=== PATIENT | female | born 1985 | race Asian ===

== ENCOUNTER 2016-12-11 11:35 | Observation (INO) | payer OTHER ==
[~2016-12-11 11:35] MED LIST: DEXILANT60 MG PO; ENDOCET 5-3251 EACH PO; FERROUS SULFAT325 MG PO; IBUPROFEN800 MG PO; PRENATAL TABLE1 EAC3 PO; SYNTHROID50 MCG PO; ZANTAC150 MG PO
[2016-12-11] MEDS ORDERED: ZOFRAN ODT4 MG PO (11:59)
[2016-12-11 12:12] VITALS: BP 123/61
[2016-12-11 12:59] LABS: MCH 25.2 PG (29.0-34.0); MCHC 30.5 G/DL (30.0-36.0); MCV 82.6 FL (83-99); MEAN PLAT.VOLUME 10.6 uM^3 (9.5-12.4); PLATELET COUNT 217 K/uL (156-360); RBC DIS.WIDTH-SD 42.1 % (39-53); RED BLOOD COUNT 4.48 M/uL (3.80-5.20); WHITE BLOOD COUNT 9.3 K/uL (4.1-10.2)
[2016-12-11 14:08] LABS: ALKALINE PHOSPHATASE 45 IU/L (3-129); AMYLASE 73 IU/L (1-118); ANION GAP 10 MEQ/L (2-14); CHLORIDE 100 MEQ/L (99-109); GFR ESTIMATE (CALCULATED) > 59 mL/min/; GLUCOSE 74 mg/dL (70-99); LIPASE 22 U/L (1.0-51.0); POTASSIUM 3.8 MEQ/L (3.7-5.4); SAMPLE HEMOLYSIS CHECK 0; SAMPLE ICTERIC CHECK 0; SAMPLE LIPEMIA CHECK 0; SODIUM 135 MEQ/L (136-147); TOTAL BILIRUBIN 0.4 MG/DL (0.0-1.0); UREA NITROGEN (BUN) 9 mg/dL (9-23)
[2016-12-11 14:46] LABS: ADD MIUA? NO; BILIRUBIN NEGATIVE; BLOOD NEGATIVE; COLOR STRAW ((YELLOW)); GLUCOSE (STRIP) NEGATIVE; KETONES 20; LEUKOCYTES NEGATIVE; NITRITE NEGATIVE; PROTEIN (STRIP) NEGATIVE; SPECIFIC GRAVITY 1.009 (1.000-1.030); UCUL ADDED? NO; UROBILINOGEN 0.2 MG/DL (0.2-1.0)
[2016-12-11 19:20] VITALS: BP 100/56
[2016-12-11 23:05] VITALS: BP 93/54
[2016-12-12 03:25] VITALS: BP 94/55
[2016-12-12 06:22] LABS: IRON 166 MCG/DL (35-150)
[2016-12-12 07:25] VITALS: BP 108/57
[2016-12-12] MEDS ORDERED: ZOFRAN ODT8 MG PO (11:13)
[2016-12-12 11:25] VITALS: BP 105/53
== END 2016-12-12 13:00 | disposition home or self-care (01) ==
LOC: 2EASTP 11:35
PROVIDERS: Nurse Practitioner Adult Health; Obstetrics & Gynecology
DX: O21.1 Hyperemesis gravidarum with metabolic disturbance (principal); Z3A.01 Less than 8 weeks gestation of pregnancy; O99.281 Endocrine, nutritional and metabolic diseases complicating pregnancy, first trimester; E03.9 Hypothyroidism, unspecified; O99.611 Diseases of the digestive system complicating pregnancy, first trimester; K21.9 Gastro-esophageal reflux disease without esophagitis; Z83.49 Family history of other endocrine, nutritional and metabolic diseases; Z83.3 Family history of diabetes mellitus
CPT/HCPCS: 76801; 80053; 81003; 82150; 83540; 83690; 83735; 84443; 84466; 85027; G0378; J2405; J2765; J3411; J3415; J7120; S0028

== ENCOUNTER 2017-01-18 19:58 | Observation (INO) | payer OTHER ==
[~2017-01-18] VITALS: Ht 162.6 cm; Wt 54.8 kg
[~2017-01-18 19:58] MED LIST changes: +ZOFRAN ODT4 MG PO; +ZOFRAN ODT8 MG PO
[2017-01-18 20:38] LABS: HEMATOCRIT 33.2 % (36.0-46.0); MCH 26.4 PG (29.0-34.0); MCHC 32.2 G/DL (30.0-36.0); MEAN PLAT.VOLUME 11.1 uM^3 (9.5-12.4); PLATELET COUNT 220 K/uL (156-360); RBC DIS.WIDTH-CV 14.6 % (11.8-14.6); RED BLOOD COUNT 4.05 M/uL (3.80-5.20); WHITE BLOOD COUNT 15.6 K/uL (4.1-10.2)
[2017-01-18 20:46] LABS: CHLORIDE 107 mEq/L (99-109); POTASSIUM 3.7 mEq/L (3.7-5.4); SODIUM 136 mEq/L (136-147)
[2017-01-18 20:48] LABS: GLUCOSE 110 mg/dL (70-99)
[2017-01-18 20:49] LABS: ANION GAP 9 MEQ/L (2-14)
[2017-01-18 20:50] LABS: TOTAL BILIRUBIN 0.2 mg/dL (0.0-1.0)
[2017-01-18 20:52] LABS: ALKALINE PHOSPHATASE 43 IU/L (3-129); GFR ESTIMATE (CALCULATED) > 59 mL/min/
[2017-01-18 20:53] LABS: UREA NITROGEN (BUN) 14 mg/dL (9-23)
[2017-01-18 21:19] LABS: QUANTITATIVE HCG 88553.4 MIU/ML
[2017-01-18 22:50] LABS: ADD MIUA? NO; BILIRUBIN NEGATIVE; BLOOD NEGATIVE; COLOR YELLOW ((YELLOW)); GLUCOSE (STRIP) NEGATIVE; KETONES 20; LEUKOCYTES NEGATIVE; NITRITE NEGATIVE; PROTEIN (STRIP) NEGATIVE; SPECIFIC GRAVITY 1.015 (1.000-1.030); UCUL ADDED? NO; UROBILINOGEN 0.2 MG/DL (0.2-1.0)
[2017-01-19 01:10] VITALS: BP 110/70
[2017-01-19 03:46] VITALS: BP 117/65
[2017-01-19 08:28] VITALS: BP 102/62
== END 2017-01-19 13:50 | disposition home or self-care (01) ==
LOC: EME 19:58 → EDOF 23:55 → 2EASTP 23:55 → EDOF 23:56 → ENRESERV 23:56 → 2EASTP 01-19 01:07
PROVIDERS: Physician Assistant
DX: O21.0 Mild hyperemesis gravidarum (principal); O99.011 Anemia complicating pregnancy, first trimester; O99.111 Other diseases of the blood and blood-forming organs and certain disorders involving the immune mechanism complicating pregnancy, first trimester; D72.829 Elevated white blood cell count, unspecified; O99.281 Endocrine, nutritional and metabolic diseases complicating pregnancy, first trimester; E03.9 Hypothyroidism, unspecified; O99.611 Diseases of the digestive system complicating pregnancy, first trimester; K21.9 Gastro-esophageal reflux disease without esophagitis; Z3A.12 12 weeks gestation of pregnancy
CPT/HCPCS: 80053; 81003; 84443; 84702; 85027; 99281; 99285; G0378; J2405; J2765; J7030; J7042; S0028

== ENCOUNTER 2017-05-19 12:21 | Outpatient (CLI) | payer OTHER ==
[~2017-05-19] VITALS: Ht 162.6 cm; Wt 63.2 kg
[2017-05-19 13:08] LABS: HEMATOCRIT 24.2 % (36.0-46.0); HEMOGLOBIN 7.3 G/DL (11.9-15.5); MCH 23.7 PG (29.0-34.0); MCHC 30.2 G/DL (30.0-36.0); MCV 78.6 FL (83-99); NRBC (%) 0.3 /100 WBC (0-0); PLATELET COUNT 185 K/uL (156-360); RBC DIS.WIDTH-CV 17.4 % (11.8-14.6); RBC DIS.WIDTH-SD 47.8 % (39-53); RED BLOOD COUNT 3.08 M/uL (3.80-5.20)
[2017-05-19 13:16] LABS: CHLORIDE 105 mEq/L (99-109); POTASSIUM 3.7 mEq/L (3.7-5.4); SODIUM 135 mEq/L (136-147)
[2017-05-19 13:17] LABS: GLUCOSE 93 mg/dL (70-99)
[2017-05-19 13:21] LABS: CREATININE 0.6 mg/dL (0.6-1.3); GFR ESTIMATE (CALCULATED) > 59 mL/min/
[2017-05-19 13:21] LABS: APPEARANCE SL.HAZY ((CLEAR)); BILIRUBIN NEGATIVE; BLOOD NEGATIVE; COLOR YELLOW ((YELLOW)); GLUCOSE (STRIP) 50; KETONES NEGATIVE; LEUKOCYTES NEGATIVE; NITRITE NEGATIVE; PROTEIN (STRIP) 30; SPECIFIC GRAVITY 1.024 (1.000-1.030); UROBILINOGEN 0.2 MG/DL (0.2-1.0)
[2017-05-19 13:22] LABS: UREA NITROGEN (BUN) 10 mg/dL (9-23)
[2017-05-19 13:32] LABS: BACTERIA RARE /HPF; EPITHELIAL CELLS 2+ /HPF; MUCUS TRACE /LPF; RED BLOOD CELLS 0-5 /HPF (0-5); WHITE BLOOD CELLS 0-5 /HPF (0-5)
[2017-05-19 14:23] LABS: THYROTROPIN (TSH) 2.5 MIU/L (0.4-5.5)
[2017-05-19 17:26] VITALS: BP 125/68
[2017-05-19] MEDS ORDERED: DEXILANT60 MG PO (17:38)
[2017-05-19] MEDS ORDERED: PRENATAL TABLE1 EACH PO (17:39)
[2017-05-19] MEDS ORDERED: IRON325 M1 PO (17:39)
[2017-05-19] MEDS ORDERED: ZANTAC150 MG PO (17:39)
== END 2017-05-19 19:25 | disposition home or self-care (01) ==
LOC: EME 12:21 → LDRP-OP 12:21 → EDSTATUS 17:15 → 2WEST 17:16
PROVIDERS: Physician Assistant
DX: O26.893 Other specified pregnancy related conditions, third trimester (principal); O99.02 Anemia complicating childbirth; Z3A.29 29 weeks gestation of pregnancy; R07.9 Chest pain, unspecified; R06.02 Shortness of breath; R55 Syncope and collapse; D64.9 Anemia, unspecified
CPT/HCPCS: 59025; 71275; 80048; 81003; 84443; 85027; 85379; 86850; 86900; 86901; 93005; 99281; 99285; G0378; J7030

== ENCOUNTER 2017-07-29 08:17 | Inpatient (IN) | payer OTHER ==
[~2017-07-29] VITALS: Ht 162.6 cm; Wt 64.4 kg
[~2017-07-29 08:17] MED LIST changes: +IRON325 M1 PO; +PRENATAL TABLE1 EACH PO
[2017-07-29 08:41] VITALS: BP 129/69
[2017-07-29 09:09] LABS: BASOPHIL (%) 0.4 % (0-1); EOSINOPHIL (%) 0.5 % (0-5); HEMATOCRIT 37.5 % (36.0-46.0); HEMOGLOBIN 12.3 G/DL (11.9-15.5); IMMATURE GRANULOCYTE (%) 0.6 % (0.0-0.7); LYMPHOCYTE (%) 21.7 % (15-42); LYMPHOCYTE COUNT 1.7 K/uL (1.0-2.8); MCH 29.9 PG (29.0-34.0); MCHC 32.8 G/DL (30.0-36.0); MONOCYTE (%) 7.4 % (3-12); MONOCYTE COUNT 0.6 K/uL (0-0.8); NEUTROPHIL (%) 69.4 % (45-76); NEUTROPHIL COUNT 5.3 K/uL (1.8-6.4); PLATELET COUNT 109 K/uL (156-360); RBC DIS.WIDTH-CV 19.1 % (11.8-14.6); RBC DIS.WIDTH-SD 64.6 % (39-53); RED BLOOD COUNT 4.12 M/uL (3.80-5.20); WHITE BLOOD COUNT 7.7 K/uL (4.1-10.2)
[2017-07-29 09:21] VITALS: BP 113/74
[2017-07-29 14:41] VITALS: BP 119/69
[2017-07-29 20:41] VITALS: BP 119/71
[2017-07-29 22:33] VITALS: BP 107/63
[2017-07-30 03:00] VITALS: BP 112/57
[2017-07-30 05:54] LABS: BASOPHIL (%) 0.3 % (0-1); EOSINOPHIL (%) 0.3 % (0-5); HEMATOCRIT 32.5 % (36.0-46.0); HEMOGLOBIN 10.6 G/DL (11.9-15.5); IMMATURE GRANULOCYTE (%) 0.5 % (0.0-0.7); LYMPHOCYTE (%) 15.9 % (15-42); LYMPHOCYTE COUNT 1.9 K/uL (1.0-2.8); MCH 29.6 PG (29.0-34.0); MCHC 32.6 G/DL (30.0-36.0); MCV 90.8 FL (83-99); MONOCYTE (%) 6.6 % (3-12); MONOCYTE COUNT 0.8 K/uL (0-0.8); NEUTROPHIL (%) 76.4 % (45-76); NEUTROPHIL COUNT 9.2 K/uL (1.8-6.4); PLATELET COUNT 94 K/uL (156-360); RBC DIS.WIDTH-CV 18.5 % (11.8-14.6); RBC DIS.WIDTH-SD 62.4 % (39-53); RED BLOOD COUNT 3.58 M/uL (3.80-5.20)
[2017-07-30 19:28] VITALS: BP 107/59
[2017-07-30 23:06] VITALS: BP 114/66
[2017-07-31 02:11] VITALS: BP 97/65
[2017-07-31 21:33] LABS: APPEARANCE CLEAR ((CLEAR)); BILIRUBIN NEGATIVE; BLOOD SMALL; COLOR YELLOW ((YELLOW)); GLUCOSE (STRIP) NEGATIVE; KETONES NEGATIVE; LEUKOCYTES NEGATIVE; NITRITE NEGATIVE; PROTEIN (STRIP) NEGATIVE; SPECIFIC GRAVITY 1.018 (1.000-1.030); UROBILINOGEN 0.2 MG/DL (0.2-1.0)
[2017-07-31 21:38] LABS: BACTERIA NONE SEEN /HPF; EPITHELIAL CELLS RARE /HPF; MUCUS TRACE /LPF; RED BLOOD CELLS 0-5 /HPF (0-5); WHITE BLOOD CELLS 0-5 /HPF (0-5)
[2017-07-31 23:19] VITALS: BP 119/74
[2017-08-01 07:24] VITALS: BP 102/67
[2017-08-01] MEDS ORDERED: ENDOCET 5-3251 EACH PO (08:58)
[2017-08-01] MEDS ORDERED: IBUPROFEN800 MG PO (08:58)
[2017-08-01 15:19] VITALS: BP 117/76
[2017-08-01 23:00] VITALS: BP 108/63
== END 2017-08-02 12:54 | disposition home or self-care (01) | DRG 765 ==
LOC: 2WEST 08:17 → 2SOUTH 14:20 → 2WEST 08-02 12:54
PROVIDERS: Obstetrics & Gynecology
PROC: 10D00Z1 Extraction of Products of Conception, Low, Open Approach (ICD-10-PCS; principal; 2017-07-29)
DX: O34.211 Maternal care for low transverse scar from previous cesarean delivery (principal); O77.0 Labor and delivery complicated by meconium in amniotic fluid; O99.284 Endocrine, nutritional and metabolic diseases complicating childbirth; E03.9 Hypothyroidism, unspecified; O99.62 Diseases of the digestive system complicating childbirth; K21.9 Gastro-esophageal reflux disease without esophagitis; O99.12 Other diseases of the blood and blood-forming organs and certain disorders involving the immune mechanism complicating childbirth; D69.6 Thrombocytopenia, unspecified; O99.02 Anemia complicating childbirth; D50.9 Iron deficiency anemia, unspecified; O24.420 Gestational diabetes mellitus in childbirth, diet controlled; Z37.0 Single live birth; Z3A.39 39 weeks gestation of pregnancy
CPT/HCPCS: 81003; 82948; 85025; 86850; 86900; 86901; 87086; 88307; J0131; J0690; J1885; J2274; J2300; J2405; J2590; J3010; J7120